=== PATIENT | female | born 1930 | race Caucasian/White ===

== ENCOUNTER 2016-11-07 15:31 | Inpatient (IN) | payer OTHER ==
--- NOTE | ~2016-11-07 | HP ---
History And Physical [place] [id number] [place]. [address] NAME: DERICK WILSON : 28 STATUS : ADM Milton PAT#: [id number] AGE: 86 ADM/REG DATE : 11/07/16 MR#: [id number] REPORT SERV DATE: 11/08/16 DICTATED BY: DATE: REPORT STATUS : Draft TRANSCRIBED BY: MODL DATE: 11/07/16 DATE OF ADMISSION: 11/07/2016 [facility] CHIEF COMPLAINT: Weakness and dizziness. HISTORY OF PRESENT ILLNESS: Ms. Derick Wilson is an 86-year-old white female, patient of Dr. Elsie Burk and Dr. Piotr Carpenter. PAST MEDICAL HISTORY: Significant for paroxysmal atrial fibrillation with past refusals of anticoagulation, diastolic congestive heart failure, history of a right pleural effusion and thoracentesis in 2014, hypertension, hypothyroidism, glaucoma, and history of peptic ulcer disease. She was in her usual state of health until this morning when she was walking back to her bed from the bathroom after having a bowel movement, and she had sudden onset of weakness and dizziness. She paused for a moment and stated that she felt "pressure in her neck and ears" along with associated tinnitus and darkening of her vision. She felt that she would pass out, but continued walking to the bed where she lied down for a while, and eventually felt better. However, when she attempted to get up out of bed, she had the same sensation of weakness and dizziness, over her, with associated pressure in the neck and ears, pressure in her head, blurred vision, and a sense that she was going to pass out. Her family had her transported to the emergency department in [facility] where she was evaluated by Dr. Clifton Hackett, and felt to require transport to [facility] in order to be evaluated by her sheet rocker, Dr. Migel Carpenter. Summary of the evaluation there is that the patient had no EKG changes aside from the noted sinus tachycardia with a rate of 104. Troponin was negative. BNP was elevated at 3288. Her blood pressure there was 96/62, unchanged on repeat several hours later. A chest x-ray showed cardiomyopathy with potential bilateral pulmonary edema. The patient's oxygen saturations were 99% to 100% on room air. Her potassium was elevated at 5.4 and her hemoglobin was 10.5. She was guaiac negative in their emergency department. The patient denies any recent paroxysmal nocturnal dyspnea or orthopnea. She denies any chest pain or palpitations. She experiences occasional dyspnea on exertion, particularly when walking back into the house from the mailbox, but this has not significantly changed recently. She has had no increase in peripheral edema, nor any increase in abdominal girth. She denies any weight change. The patient felt she might have seen some blood in her stool this morning, but again was heme-negative in the outlying facility's emergency department. She denies any recent change in appetite. She has no nausea or vomiting. She has not had any diarrhea. She does have a history of reflux and a prior partial gastrectomy - but again those symptoms are longstanding. The patient saw her primary care provider three weeks ago and was told that she was History And Physical [address] [address] NAME: DERICK WILSON : 29 STATUS : ADM Milton PAT#: [id number] AGE: 86 ADM/REG DATE : 11/07/16 MR#: [id number] REPORT SERV DATE: 11/08/16 DICTATED BY: DATE: REPORT STATUS : Draft TRANSCRIBED BY: MODL DATE: 11/07/16 dehydrated and to increase her fluid intake, but she has been unsuccessful with this because water makes her nauseated. She has not seen Dr. Carpenter in approximately 6 months. REVIEW OF SYSTEMS: A full 14-point review of systems is negative except as dictated in the history of present illness. PAST MEDICAL HISTORY: Includes 1. Paroxysmal atrial fibrillation with refusals of anticoagulation in the past. 2. Diastolic congestive heart failure. 3. History of right pleural effusion and prior thoracentesis. 4. Hypertension. 5. Hypothyroidism. 6. Glaucoma. 7. History of peptic ulcer disease. PAST SURGICAL HISTORY: Includes a partial gastrectomy and prior thoracentesis. ALLERGIES: NO KNOWN DRUG ALLERGIES. MEDICATIONS: 1. Aspirin 81 mg p.o. daily. 2. Cosopt eyedrops one drop in each eye twice a day. 3. Latanoprost eyedrops one drop in each eye at bedtime. 4. Levothyroxine 12.5 mcg p.o. daily. 5. Aldactone 12.5 mg p.o. daily. 6. Of note, the patient previously was on Cardizem, but is not on it currently. SOCIAL HISTORY: The patient resides with her son. She has a remote history of tobacco, but has quit for over 50 years. She does not consume any alcohol or illicit substances. She is . FAMILY HISTORY: Pertinent for myocardial infarction in her father and several siblings. Her mother of a CVA. PHYSICAL EXAMINATION: VITAL SIGNS: Temperature 98.5, pulse 105, respirations 16, oxygen saturations 97% on room air, and blood pressure 109/73. GENERAL: This is a thin white female in no acute distress. Hard of hearing but alert and oriented in three dimensions. Pleasant and an excellent historian. HEENT: Normocephalic and atraumatic. Pupils are equally round and reactive to light. No icterus. No conjunctival pallor. No sinus tenderness to palpation or nasal drainage. Oropharynx reveals dry mucosae, but no posterior pharyngeal erythema nor exudate. NECK: Supple with no jugular venous distention. No lymphadenopathy. No thyromegaly. CARDIOVASCULAR: Regular rate and rhythm with 2/6 systolic ejection murmur heard best at the right lower sternal border, diffusely radiating. LUNGS: Clear to auscultation bilaterally with no wheezes, crackles, nor rhonchi. History And Physical [address] [address] NAME: DERICK WILSON : 29 STATUS : ADM Milton PAT#: [id number] AGE: 86 ADM/REG DATE : 11/07/16 MR#: [id number] REPORT SERV DATE: 11/08/16 DICTATED BY: DATE: REPORT STATUS : Draft TRANSCRIBED BY: MODL DATE: 11/07/16 ABDOMEN: Soft, nontender, and nondistended with normoactive bowel sounds in four quadrants. No hepatosplenomegaly. EXTREMITIES: No cyanosis, clubbing, or edema. SKIN: Very thin skin with evidence of extensive bruising in bilateral upper extremities. Normal skin turgor. NEUROLOGIC: Cranial nerves 2 through 12 are tested and are intact. Deep tendon reflexes 2+, bilateral brachioradialis and patellar tendons. Sensation intact to fine touch and temperature in all four limbs. Cerebellar testing cannot be performed due to dizziness on standing. LABORATORY DATA: EKG shows sinus tachycardia with occasional PVCs and a right bundle-branch block with a rate of 104. White blood cell count 8.3, hemoglobin 10.5, hematocrit 32.1, platelets 263, sodium 137, potassium 5.4, chloride 104, bicarb 21.2, BUN 14, creatinine 0.7, glucose 106, troponin 0.03, and BNP 3288. Urinalysis shows trace protein, trace bacteria, 2 to 5 epithelial cells, 10 to 15 white blood cells, leukocyte esterase negative, nitrite negative. AST 88, ALT 41, alkaline phosphatase 136, total protein 5.7, albumin 2.3, INR 1.3, total bilirubin 0.8, and calcium 7.9. Stool for occult blood was negative. Chest x-ray read as cardiomegaly and mild perihilar and basal vascular congestion. IMPRESSION: 1. Presyncope. 2. Hyperkalemia. 3. Hypotension. 4. Anemia. 5. Paroxysmal atrial fibrillation - sinus tachycardia at present. 6. History of diastolic congestive heart failure, compensated. No evidence of acute exacerbation at present. 7. Hypothyroidism. 8. Glaucoma. 9. History of peptic ulcer disease. PLAN: 1. The patient is admitted in observation status to [address] [place] [address], attending doctor Dr. Floyd Colon. 2. Spironolactone will be held, and the patient will be gently hydrated with normal saline at 75 mL/h for 2 L, then saline locked. Orthostatic vital signs are currently pending. 3. Additional labs pending include iron studies, B12, folate, guaiac x3, thyroid function tests, and a repeat urinalysis. 4. CT of the brain without contrast to better evaluate presyncope and dizziness given the history of atrial fibrillation and past refusals of anticoagulation, we will rule out a small cerebellar stroke as the etiology of symptoms. 5. Cardiology has been consulted at the family's request. History And Physical [address] [address] NAME: DEIRCK WILSON : 29 STATUS : ADM Milton PAT#: [id number] AGE: 86 ADM/REG DATE : 11/07/16 MR#: [id number] REPORT SERV DATE: 11/08/16 DICTATED BY: DATE: REPORT STATUS : Draft TRANSCRIBED BY: GRADY DATE: 11/07/16 RAFAEL/GRADY Floyd Colon M.D. / [id number] CC: Vernon Pino M.D. C. Samuel Ledford, M.D.
--- NOTE | ~2016-11-07 | CN ---
Consultation Report [facility] [address] [place]. [address] NAME: DERICK WILSON : 28 STATUS : ADM Milton PAT#: [id number] AGE: 86 ADM/REG DATE : 11/07/16 MR#: [id number] REPORT SERV DATE: 11/08/16 DICTATED BY: HAILE VENEGAS DATE: 11/07/16 REPORT STATUS : Draft TRANSCRIBED BY: MODL DATE: 11/07/16 CARDIOLOGY CONSULT DATE OF CONSULTATION: 11/07/2016 PRIMARY ENROLLMENT MANAGEMENT COORDINATOR: June Carpenter M.D. REASON FOR CONSULTATION: Tachycardia and near syncope. HISTORY OF PRESENT ILLNESS: Ms. Wilson is an 86-year-old female who presented to an outside emergency room today from home with one to two days of palpitations with dizziness and near syncope. She has a history of paroxysmal atrial fibrillation per family as well as a history of diastolic heart failure several years ago. She has known COPD with pulmonary hypertension and cor pulmonale on her most recent echocardiogram. On arrival, she had an episode of sustained tachycardia with an underlying right bundle-branch block at a rate of 200 beats per minute. With this, she did become hypotensive with a systolic of 60s and had altered mental status. Prior to ACLS initiation, she spontaneously converted back to sinus tachycardia where her mental status changes resolved and blood pressure improved. EKG at that time showed organized atrial activity in V1 with the suspicion for atrial tachycardia versus atypical atrial flutter and occasional one-to-one and variable AV block. Atrial fibrillation not excluded. She is now resting comfortably and only complains of being hungry. She denies chest pain or angina. She has dyspnea with palpitations, and she has chronic exertional shortness of breath that is at her baseline. She has had no recent angina. She denies orthopnea or edema. REVIEW OF SYSTEMS: Pertinent positives and negatives are as outlined above, all other negative. PAST MEDICAL HISTORY: 1. Chronic cor pulmonale. 2. Pulmonary hypertension, secondary. 3. COPD. 4. Chronic diastolic heart failure. 5. Hypertension. HOME MEDICATIONS: Her current home medications are: 1. Aspirin 81 mg daily. 2. Cosopt eye drops. 3. Xalatan eye drops. 4. Synthroid 12.5 mg daily. 5. Aldactone 12.5 mg daily. ALLERGIES: NO KNOWN DRUG ALLERGIES. Consultation Report [facility] [address] [place]. [address] NAME: DERICK WILSON : 29 STATUS : ADM Milton PAT#: [id number] AGE: 86 ADM/REG DATE : 11/07/16 MR#: [id number] REPORT SERV DATE: 11/08/16 DICTATED BY: HAILE VENEGAS DATE: 11/07/16 REPORT STATUS : Draft TRANSCRIBED BY: MODL DATE: 11/07/16 SOCIAL HISTORY: She has a remote history of tobacco use but quit many years ago. She does not consume alcohol or use illegal drugs. FAMILY HISTORY: No significant family history of premature CAD, cardiomyopathy, or sudden . PHYSICAL EXAMINATION: VITALS: Temperature is afebrile, pulse is 100, respirations 16, blood pressure 120/60. GENERAL: Well-developed, but thin and frail-appearing female who is currently in no acute distress. HEENT: Sclerae anicteric, mucous membranes moist and without lesions. NECK: No jugular venous distention. No hepatojugular reflux, carotid upstrokes 2+ and symmetric, there are no carotid or subclavian bruit. LUNGS: moderately decreased breath sounds throughout. CARDIOVASCULAR: Regular with distant S1 and S2. No audible S3 or S4. There is a 1/6 holosystolic murmur heard in the axilla without radiation. No parasternal lift. PMI is not palpable. ABDOMEN: Soft and nontender. Bowel sounds positive and normoactive. No hepatomegaly, no masses, no abdominal bruit. PULSES: Radial and dorsalis pedis pulses are 1+ and symmetric. EXTREMITIES: Warm and there is no edema. SKIN: No clubbing or cyanosis, no rashes or lesions. IMPRESSION: 1. Atrial tachycardia versus atypical flutter with occasional one-to-one conduction and variable AV block. 2. Near syncope. 3. Chronic cor pulmonale. 4. Pulmonary hypertension, secondary. 5. Chronic obstructive pulmonary disease. 6. History of chronic diastolic heart failure. 7. Anemia. PLAN: Ms. Wilson has symptomatic tachycardia that appears to be related to an atrial tachycardia versus atypical atrial flutter; however, atrial fibrillation cannot be definitively excluded. I do not recommend anticoagulation at this time due to anemia evaluation and reported history of "blood in stools" earlier today. This was being evaluated by Internal Medicine. When safe, recommend Eliquis adjusted dose 2.5 mg twice daily. For now, she will start amiodarone as the only safe antiarrhythmic control her symptomatic tachycardia with low-dose metoprolol 12.5 mg twice daily. She will have a.m. labs and a.m. EKG. We will follow with you. AEA/MODL Consultation Report [address] [place]. [address] NAME: DERICK WILSON : 29 STATUS : ADM Milton PAT#: [id number] AGE: 86 ADM/REG DATE : 11/07/16 MR#: [id number] REPORT SERV DATE: 11/08/16 DICTATED BY: HAILE VENEGAS. DATE: 11/07/16 REPORT STATUS : Draft TRANSCRIBED BY: GRADY DATE: 11/07/16 Haile Venegas M.D. / [id number] CC: Floyd Colon M.D.
--- NOTE | ~2016-11-07 | DS ---
Discharge Summary [facility] [address] [facility] [place]. [address] NAME: DERICK PUENTE : 28 STATUS : DIS IN PAT#: [id number] AGE: 86 ADM/REG DATE : 11/07/16 MR#: [id number] REPORT SERV DATE: 11/11/16 DICTATED BY: SHI GIL DATE: 11/10/16 REPORT STATUS : Draft TRANSCRIBED BY: MODL DATE: 11/10/16 ADMISSION DATE: 11/07/2016 DISCHARGE DATE: 11/10/2016 DISCHARGE DIAGNOSES: 1. Generalized weakness with near syncopal episode with a finding of atrial tachycardia, amiodarone was added and also beta-glenn was added on this admission. 2. Hypothyroidism with increased TSH, the patient's Synthroid replacement dose was increased to 25 mcg once a day. 3. Chronic cor pulmonale. 4. History of atrial fibrillation with previous refusal of anticoagulation due to anemia. 5. History of diastolic ,congestive heart failure, compensated. ACCOUNTING SYSTEMS MANAGER: Dr. Carpenter. HISTORY OF PRESENT ILLNESS: This is an 86-year-old female patient, who came to the hospital with generalized weakness and near syncopal episode, was found to have atrial tachycardia. Please see dictated H and P and dictated consultation report from Dr. Greene. HOSPITAL COURSE: The patient was admitted to the hospital with observation initially for cardiac evaluation. Cardiac medicine has been adjusted by high school art teacher. Amiodarone and metoprolol were added on this admission. Her Aldactone was discontinued due to the concern for the hyperkalemia. She is tolerating all the medicine, treatment, and changes. I resumed the case on the day of discharge. She has been stable. Does not require any oxygen. She is in sinus rhythm, and therefore, she will be discharged to home with family with continuing amiodarone 200 mg twice a day and metoprolol 12.5 mg twice a day. She was found to have increased TSH above the 90s with replacement with levothyroxine 12.5 mcg once a day. Her dosage was increased to 25 mcg once a day. Overall, tolerated treatment and adjustment of medication. Remains in stable condition. Will be discharged to home. DISCHARGE MEDICATIONS: Levothyroxine was increased to 25 mcg once a day. Aldactone was discontinued. Continue aspirin 81 mg, amiodarone 200 mg twice a day, and also metoprolol 12.5 mg twice a day. DISPOSITION: The patient is discharged to home in stable condition with family. TIME SPENT: More than 30 minutes in coordination. EKL/MODL [place] Discharge Summary [address] [address] NAME: DERICK PUENTE : 29 STATUS : DIS IN PAT#: [id number] AGE: 86 ADM/REG DATE : 11/07/16 MR#: [id number] REPORT SERV DATE: 11/11/16 DICTATED BY: SHI GIL DATE: 11/10/16 REPORT STATUS : Draft TRANSCRIBED BY: GRADY DATE: 11/10/16 Vernon Gil / [id number] CC: Vernon Chang M.D.
[~2016-11-07 15:31] MED LIST: CORDARONE PO; DOCUSOFT S100 MG PO; HALF81 PO; L40 PO; LAN25 PO; LEVOTHYROXIN25 MCG PO; MICRO-K10 MEQ PO; NATURE'S OP; TOPXL50 PO; TYLENOL ARTH650 MG PO
[2016-11-07] MEDS ORDERED: SPIRO25 PO ×2 (16:29→20:05)
[2016-11-07] MEDS ORDERED: XALAT OPH (16:29)
[2016-11-07] MEDS ORDERED: COSOPT OPH (16:30)
[2016-11-07] MEDS ORDERED: ASAB PO (20:04)
[2016-11-07] MEDS ORDERED: LEVOTHROID25 MCG PO (20:05)
[2016-11-07] MEDS ORDERED: PRILOSEC40 MG PO (20:05)
[2016-11-07 20:38] LABS: FREE T4 0.55 NG/DL (0.76-1.46)
[2016-11-07 20:40] LABS: FOLATE 29.8 NG/ML (>5.2); ULTRASENSITIVE TSH 84.9 MCIU/ML (0.358-3.740)
[2016-11-08 04:18] LABS: BASOPHILS 0.5 %; BASOPHILS ABSOLUTE 0.04 10/3/uL (0.0-0.16); EOSINOPHILS 0.2 %; EOSINOPHILS ABSOLUTE 0.02 10/3/uL (0.0-0.53); HEMATOCRIT 30.3 % (36.0-48.0); HEMOGLOBIN 9.9 g/dL (12.0-16.0); IMMATURE GRANULOCYTES 0.4 %; IMMATURE GRANULOCYTES ABSOLUTE 0.03 10/3/uL (0.0-0.11); LYMPHOCYTES 27.6 %; LYMPHOCYTES ABSOLUTE 2.24 10/3/uL (0.67-4.30); MEAN CORPUS HGB CONC 32.7 g/dL (32.0-36.0); MEAN PLATELET VOLUME 9.7 fL (9.2-13.0); MONOCYTES 9.4 %; MONOCYTES ABSOLUTE 0.76 10/3/uL (0.21-1.20); NEUTROPHILS 61.9 %; NEUTROPHILS ABSOLUTE 5.02 10/3/uL (2.02-8.40); PLATELET COUNT 267 10/3/uL (150-400); RBC DISTRIBUTION WIDTH 16.9 % (12.0-16.0); WHITE BLOOD CELLS 8.1 10/3/uL (4.5-10.5)
[2016-11-08 04:20] LABS: MANUAL DIFF NO %; MEAN CORPUSCULAR VOLUME 91.8 fL (80-100)
[2016-11-08 04:26] LABS: BUN (BLOOD UREA NITROGEN) 18 MG/DL (6-23); CALCIUM, SERUM 7.5 MG/DL (8.5-10.4); CHLORIDE, SERUM 107 MMOL/L (96-112); CO2 (CARBON DIOXIDE) 21 MMOL/L (24-34); CREATININE 0.75 MG/DL (0.55-1.02); GFR AFRICAN AMERICAN 83 ML/MIN (>=60); GFR NON AFRICAN AMERICAN 72 ML/MIN (>=60); GLUCOSE, SERUM 101 MG/DL (60-99); POTASSIUM, SERUM 3.1 MMOL/L (3.5-5.3); SODIUM, SERUM 140 MMOL/L (135-148)
[2016-11-09 06:41] LABS: BASOPHILS 0.3 %; BASOPHILS ABSOLUTE 0.02 10/3/uL (0.0-0.16); EOSINOPHILS 1.2 %; EOSINOPHILS ABSOLUTE 0.07 10/3/uL (0.0-0.53); HEMATOCRIT 29.3 % (36.0-48.0); HEMOGLOBIN 9.8 g/dL (12.0-16.0); IMMATURE GRANULOCYTES 0.5 %; IMMATURE GRANULOCYTES ABSOLUTE 0.03 10/3/uL (0.0-0.11); LYMPHOCYTES 24.3 %; LYMPHOCYTES ABSOLUTE 1.42 10/3/uL (0.67-4.30); MEAN CORPUS HGB CONC 33.4 g/dL (32.0-36.0); MEAN CORPUSCULAR HEMOGLOB 30.6 pg (26.0-34.0); MEAN CORPUSCULAR VOLUME 91.6 fL (80-100); MEAN PLATELET VOLUME 9.6 fL (9.2-13.0); MONOCYTES ABSOLUTE 0.64 10/3/uL (0.21-1.20); NEUTROPHILS 62.7 %; NEUTROPHILS ABSOLUTE 3.66 10/3/uL (2.02-8.40); PLATELET COUNT 268 10/3/uL (150-400); RBC DISTRIBUTION WIDTH 17.1 % (12.0-16.0); WHITE BLOOD CELLS 5.8 10/3/uL (4.5-10.5)
[2016-11-09 06:43] LABS: MANUAL DIFF NO %
[2016-11-09 06:52] LABS: ALBUMIN 1.9 G/DL (3.5-5.0); BUN (BLOOD UREA NITROGEN) 14 MG/DL (6-23); CHLORIDE, SERUM 108 MMOL/L (96-112); CO2 (CARBON DIOXIDE) 23 MMOL/L (24-34); CREATININE 0.74 MG/DL (0.55-1.02); GFR AFRICAN AMERICAN 84 ML/MIN (>=60); GFR NON AFRICAN AMERICAN 73 ML/MIN (>=60); GLUCOSE, SERUM 113 MG/DL (60-99); PHOSPHORUS, SERUM 2.4 MG/DL (2.5-4.5); SODIUM, SERUM 138 MMOL/L (135-148)
[2016-11-10 06:41] LABS: ALBUMIN 1.9 G/DL (3.5-5.0); BUN (BLOOD UREA NITROGEN) 14 MG/DL (6-23); CALCIUM, SERUM 7.9 MG/DL (8.5-10.4); CHLORIDE, SERUM 110 MMOL/L (96-112); CO2 (CARBON DIOXIDE) 20 MMOL/L (24-34); CREATININE 0.71 MG/DL (0.55-1.02); FREE T4 0.54 NG/DL (0.76-1.46); GFR AFRICAN AMERICAN 89 ML/MIN (>=60); GFR NON AFRICAN AMERICAN 77 ML/MIN (>=60); PHOSPHORUS, SERUM 2.6 MG/DL (2.5-4.5); POTASSIUM, SERUM 4.2 MMOL/L (3.5-5.3); SODIUM, SERUM 141 MMOL/L (135-148)
[2016-11-10 06:45] LABS: GLUCOSE, SERUM 84 MG/DL (60-99)
[2016-11-10 07:29] LABS: BASOPHILS 0.9 %; BASOPHILS ABSOLUTE 0.06 10/3/uL (0.0-0.16); EOSINOPHILS 1.3 %; EOSINOPHILS ABSOLUTE 0.09 10/3/uL (0.0-0.53); HEMATOCRIT 31.8 % (36.0-48.0); HEMOGLOBIN 10.3 g/dL (12.0-16.0); IMMATURE GRANULOCYTES 0.4 %; IMMATURE GRANULOCYTES ABSOLUTE 0.03 10/3/uL (0.0-0.11); MEAN CORPUS HGB CONC 32.4 g/dL (32.0-36.0); MEAN CORPUSCULAR HEMOGLOB 30.3 pg (26.0-34.0); MEAN CORPUSCULAR VOLUME 93.5 fL (80-100); MEAN PLATELET VOLUME 9.9 fL (9.2-13.0); MONOCYTES 11.2 %; MONOCYTES ABSOLUTE 0.77 10/3/uL (0.21-1.20); NEUTROPHILS 57.2 %; NEUTROPHILS ABSOLUTE 3.94 10/3/uL (2.02-8.40); PLATELET COUNT 246 10/3/uL (150-400); RBC DISTRIBUTION WIDTH 17.6 % (12.0-16.0); WHITE BLOOD CELLS 6.9 10/3/uL (4.5-10.5)
[2016-11-10 07:34] LABS: MANUAL DIFF NO %
[2016-11-10] MEDS ORDERED: CORDARONE PO (10:52)
[2016-11-10] MEDS ORDERED: HYDROCORTISONE30 G4 TOP (10:54)
[2016-11-10] MEDS ORDERED: LOP25 PO (10:57)
== END 2016-11-10 18:09 | disposition home or self-care (01) | DRG 309 ==
LOC: 5NO 15:31
PROVIDERS: Hospitalist
DX: I47.1 Supraventricular tachycardia (principal); I50.32 Chronic diastolic (congestive) heart failure; I11.0 Hypertensive heart disease with heart failure; I95.9 Hypotension, unspecified; I27.2 Other secondary pulmonary hypertension; R55 Syncope and collapse; E87.5 Hyperkalemia; D64.9 Anemia, unspecified; I48.0 Paroxysmal atrial fibrillation; E03.9 Hypothyroidism, unspecified; H40.9 Unspecified glaucoma; Z87.11 Personal history of peptic ulcer disease; I45.10 Unspecified right bundle-branch block; Z87.891 Personal history of nicotine dependence; Z82.49 Family history of ischemic heart disease and other diseases of the circulatory system; Z82.3 Family history of stroke; Z79.82 Long term (current) use of aspirin; Z79.899 Other long term (current) drug therapy; J44.9 Chronic obstructive pulmonary disease, unspecified
CPT/HCPCS: 70450; 80048; 80069; 82272; 82607; 82728; 82746; 83540; 83550; 83735; 83880; 84132; 84439; 84443; 85025; 93005; A9270-GY; J0282; J1160; J3473